=== PATIENT | male | born 1970 | race Caucasian/White ===

== ENCOUNTER → 2022-04-21 10:14 | Outpatient (BNVA) | payer OTHER, SELFPAY | PROVIDERS: PCP Internal Medicine; Visit Provider Orthopaedic Surgery | DX: Z13.89 Encounter for screening for other disorder (principal) ==

== ENCOUNTER 2022-05-26 15:01 | Outpatient (REF) | payer OTHER, SELFPAY | END 2022-05-26 15:02 | disposition home or self-care (01) | LOC: HO.MAMMO 15:01 | PROVIDERS: PCP Internal Medicine; Visit Provider Orthopaedic Surgery | DX: Z13.89 Encounter for screening for other disorder (principal) ==

== ENCOUNTER 2023-06-19 14:32 | Outpatient (REF) | payer OTHER, SELFPAY ==
--- NOTE | ~2023-06-19 | XR_ITS ---
EXAMINATION: XR ELBOW, RIGHT CLINICAL INFORMATION: Pain COMPARISON: None available. TECHNIQUE: Three views of the right elbow. FINDINGS: No acute fracture or dislocation. Joint spaces are maintained. Soft tissues are unremarkable. No joint effusion. XR/XR elbow RT 2V IMPRESSION: * No acute osseous abnormality.
== END 2023-06-19 14:33 | disposition home or self-care (01) ==
LOC: HO.HOSX 14:32
PROVIDERS: PCP Internal Medicine; Visit Provider Orthopaedic Surgery
DX: M77.11 Lateral epicondylitis, right elbow (principal)
CPT/HCPCS: 73070; 99212

== ENCOUNTER 2023-06-19 14:32 | Outpatient (AMB) | payer OTHER, SELFPAY ==
--- NOTE | 2023-06-19 14:35 | A.OFFVIS_ITS ---
Intake Intake Visit Reasons: OV Intake Note: Fuentes is a 52 year old male who presents today with complaints of right elbow pain . 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 He had long-standing medial epicondylitis which has resolved with PRP injection. He was doing well but started using a different racquet for practice and noticed some lateral elbow pain. He took a few days off and then played for several days in a row and the lateral elbow pain became worse. He also has noticed posterior pain. He denies numbness and tinglig. 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 Resp Other: No audible wheezing Effort & Inspection: normal respiratory effort Cardio Other: Radial pulse palpable with no rythmic abnormalities Back/Spine/Pelvis Cervical Spine: normal cervical lordosis Skin General skin exam: no rashes or lesions noted Neuro General: no focal motor deficits Extrem Other: Full ROM right elbow (5deg hyper-extension bilaterally). TTP lateral epicondyle on the right + Dynamic resisted wrist extension test + resisted long finger ext test Dull non specific tenderness along the distal triceps without reproduceable pain. Psych Appearance: grossly normal and well kempt Mental Status: mental status grossly normal Speech and movement: Normal speech and movement present Affect: normal affect Attitude: cooperative Results Reviewed Results Reviewed: I personally reviewed relevant radiographs. Medial epicondyle hyper ostosis/enthesophyte. Otherwsie unremarkable. Assessment & Plan Assessment & Plan (1) Lateral epicondylitis of right elbow: Code(s): M77.11 - Lateral epicondylitis, right elbow Plan: Lateral epicondylitis May consider K-taping instruction by a trained professional Counter-force brace given Reviewed natural history. 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 Orders: Orders XR elbow RT 2V 06/19/23 M25.529 - Pain in unspecified elbow PT Evaluation and Treatment Today M77.11 - Lateral epicondylitis, right elbow Coding Level of Care Code Est Pt Level 3 (23670) Diagnoses Lateral epicondylitis of right elbow M77.11
== END 2023-06-19 15:43 | disposition home or self-care (01) ==
PROVIDERS: PCP Internal Medicine; Visit Provider Orthopaedic Surgery
DX: M77.11 Lateral epicondylitis, right elbow (principal)
CPT/HCPCS: 99213

== ENCOUNTER 2023-06-28 11:03 | Outpatient (RCR) | payer OTHER, SELFPAY ==
--- NOTE | 2023-06-28 16:35 | MHC.PT.EP ---
[facility] [place] [facility] [place] [facility] [place] [facility] [address] [phone] F: [phone] F: [phone] F: [phone] F: [phone] Physical Therapy Plan of Care Date of Evaluation: 06/28/23 Date of Surgery: Diagnosis: R Lateral epicondylitis. 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 His goal is to learn therapeutic taping to manage his symptoms. Pt is deemed an appropriate for self therapeutic taping instruction. Frequency and Duration: The patient will be seen 0 Short Term Goals: Assisted Goals: Pt has Met goal of learning and practicing self Therapeutic Elastic Taping technique for management of R lateral epicondylitis. Treatment Plan: Modalities to reduce pain, spasms and effusion. Manual therapy to restore motion and function. Therapeutic exercise to improve strength and flexibility. Neuromuscular re-education for posture and balance. Therapeutic activities to return to functional activities of daily living. Electronically signed by: Jarvis Sheikh PT Please sign and return to therapist. Thank you for your referral.
--- NOTE | 2023-06-28 16:36 | MHC.PT.DC ---
[facility] [place] [facility] [place] [facility] [place] [facility] [address] [phone] F: [phone] F: [phone] F: [phone] F: [phone] Physical Therapy Discharge Report Diagnosis: R Lateral epicondylitis. Date of Surgery: Date of Evaluation: 06/28/23 Date of Discharge: 06/28/23 Treatments to Date: 1 Cancellations to Date: No Shows to Date: Discharge Status: Achieved Goals Discharge Summary: Pt has Met goal of learning and practicing self Therapeutic Elastic Taping technique for management of R lateral epicondylitis. Electronically signed by: Jarvis Sheikh PT. Please sign and return to therapist. Thank you for your referral.
== END 2024-01-19 12:26 | disposition home or self-care (01) ==
LOC: HO.PT 11:03
PROVIDERS: PCP Internal Medicine; Visit Provider Orthopaedic Surgery
DX: M77.11 Lateral epicondylitis, right elbow (principal)
CPT/HCPCS: 97161

== ENCOUNTER 2023-07-28 12:31 | Outpatient (AMB) | payer SELFPAY ==
--- NOTE | 2023-07-28 12:34 | MHC.OFFVIS ---
Intake Intake Visit Reasons: PRP R elbow Intake Note: This is a 53 year old male who presents for a right elbow PRP injection. 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
== END 2023-07-28 13:55 | disposition home or self-care (01) ==
LOC: HO.HOSPRC 12:31
PROVIDERS: PCP Internal Medicine; Visit Provider Orthopaedic Surgery
DX: M77.11 Lateral epicondylitis, right elbow (principal)
CPT/HCPCS: 0232T

== ENCOUNTER → 2023-07-28 12:31 | Outpatient (BNVA) | payer OTHER, SELFPAY | PROVIDERS: PCP Internal Medicine; Visit Provider Orthopaedic Surgery ==

== ENCOUNTER 2023-09-14 12:42 | Outpatient (AMB) | payer OTHER, SELFPAY ==
--- NOTE | 2023-09-14 12:48 | A.OFFVIS_ITS ---
Intake Visit Reasons: OV, Follow up PRP in R elbow 07/28/23 Intake Note: Fuentes is a 53 year old right hand dominant male who presents today for a follow up of his right medial epicondylitis. PRP injection done 07/28/23 . Patient reports that he is doing well he feels some mild improvement. He reports that he has pain around the scapula of the right side and radiates down the back/lats. He also gets a srea of pain in the upper right glute and radiates up the back. Allergies No Known Allergies Allergy (Verified 07/28/23 12:35) HPI HPI OV, Follow up PRP in R elbow 07/28/23: Details: Fuentes is doing ok. His elbow feels better but still not 100%. He feels like it is getting stronger. 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 I recommend slow return to activity as tolerated Coding Level of Care Code Est Pt Level 3 (89367) Diagnoses Lateral epicondylitis of right elbow M77.11
== END 2023-09-14 13:36 | disposition home or self-care (01) ==
PROVIDERS: PCP Internal Medicine; Visit Provider Orthopaedic Surgery
DX: M77.11 Lateral epicondylitis, right elbow (principal)
CPT/HCPCS: 99212

== ENCOUNTER → 2023-09-14 12:42 | Outpatient (BNVA) | payer OTHER, SELFPAY | PROVIDERS: PCP Internal Medicine; Visit Provider Orthopaedic Surgery | DX: M77.11 Lateral epicondylitis, right elbow (principal) | CPT/HCPCS: 99212 ==